=== PATIENT | male | born 2000 | race Caucasian/White ===

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

== ENCOUNTER 2021-01-10 18:47 | Emergency (ER) | payer MEDICAID, OTHER ==
[~2021-01-10] VITALS: Ht 165.1 cm; Wt 75.0 kg
[2021-01-10 18:51] VITALS: BP 115/71
[2021-01-10] MEDS ORDERED: TETANUS, DIPHTHERIA, PERTUSSIS VAC/PF 0.5ML (>7YR OLD) IM ONE (19:15)
== END 2021-01-10 20:10 | disposition home or self-care (01) ==
LOC: ER 18:47
DX: S69.82XA Other specified injuries of left wrist, hand and finger(s), initial encounter (principal); W22.8XXA Striking against or struck by other objects, initial encounter; Y93.9 Activity, unspecified; Y92.89 Other specified places as the place of occurrence of the external cause
CPT/HCPCS: 73140; 90471; 90715; 99283

== ENCOUNTER 2021-04-01 22:10 | Emergency (ER) | payer MEDICAID ==
[~2021-04-01] VITALS: Ht 170.2 cm; Wt 66.0 kg
[2021-04-01] MEDS ORDERED: CEFTRIAXONE SODIUM 500 MG/VIAL IM ONE (23:45)
[2021-04-02] MEDS ORDERED: LIDOCAINE HCL 1% 20ML VIAL (Pyxis) INJ INFIL ONE
[2021-04-02 00:37] LABS: CLARITY URINE CLEAR (CLEAR); COLOR URINE YELLOW (YELLOW); KETONES URINE TRACE (NEGATIVE); LEUKOCYTE ESTERASE URINE NEGATIVE (NEGATIVE); NITRITE URINE NEGATIVE (NEGATIVE); OCCULT BLOOD URINE NEGATIVE (NEGATIVE); PH URINE 7.5 (4.5-8.0); PROTEIN URINE NEGATIVE (NEGATIVE); SPECIFIC GRAVITY URINE 1.023 (1.005-1.030)
[2021-04-02] MEDS ORDERED: DOXY100C2 MT (00:51)
[2021-04-02 01:00] VITALS: BP 125/76
== END 2021-04-02 01:01 | disposition home or self-care (01) ==
LOC: ER 22:10
DX: A64 Unspecified sexually transmitted disease (principal); R30.0 Dysuria; F12.10 Cannabis abuse, uncomplicated
CPT/HCPCS: 81003; 96372; 99283; J0696; J3490

== ENCOUNTER 2022-07-08 23:16 | Emergency (ER) | payer MEDICAID ==
[~2022-07-08] VITALS: Ht 172.7 cm; Wt 66.3 kg
[~2022-07-08 23:16] MED LIST: DOXY100C5 MT
[2022-07-08 23:30] VITALS: BP 124/83
[2022-07-09] MEDS ORDERED: IBUPROFEN 600MG TABLET PO ONE (02:45)
[2022-07-09] MEDS ORDERED: IBUP-2029 MT (05:30)
== END 2022-07-09 06:02 | disposition home or self-care (01) ==
LOC: ER 23:16
DX: S20.212A Contusion of left front wall of thorax, initial encounter (principal); S22.32XA Fracture of one rib, left side, initial encounter for closed fracture; W01.198A Fall on same level from slipping, tripping and stumbling with subsequent striking against other object, initial encounter; Y93.89 Activity, other specified; Y92.9 Unspecified place or not applicable
CPT/HCPCS: 71101; 99283

== ENCOUNTER 2022-07-15 11:25 | Emergency (ER) | payer MEDICAID ==
[~2022-07-15] VITALS: Ht 175.3 cm; Wt 68.0 kg
[~2022-07-15 11:25] MED LIST changes: +IBUP-2029 MT
[2022-07-15 13:11] LABS: BASOPHILS % 0.6 % (0.0-2.0); EOSINOPHILS % 0.4 % (0.0-5.0); HEMATOCRIT. 44.4 % (42.0-52.0); HEMOGLOBIN. 15.6 g/dL (14.0-18.0); LYMPHOCYTES % 12.5 % (20.0-50.0); MEAN CORPUSCULAR HEMOGLOBIN 30.1 pg (28.0-32.0); MEAN PLATELET VOLUME 7.6 fl (7.4-10.4); MONOCYTES % 5.5 % (2.0-8.0); PLATELET 345 x1000/uL (130-400); RED BLOOD CELL COUNT 5.16 mill/uL (4.7-6.1); RED CELL DISTRIBUTION WIDTH 12.9 % (11.6-14.6)
[2022-07-15] MEDS ORDERED: HYDROCODONE/ACETAMINOPHEN 5/325MG TABLET PO NR (13:42)
[2022-07-15 13:50] LABS: CHLORIDE 103 mEq/L (98-107)
[2022-07-15] MEDS ORDERED: IOHEXOL-300 100 ML BOTTLE ONE (15:09)
[2022-07-15 16:20] LABS: CLARITY URINE CLEAR (CLEAR); COLOR URINE YELLOW (YELLOW); KETONES URINE TRACE (NEGATIVE); LEUKOCYTE ESTERASE URINE NEGATIVE (NEGATIVE); NITRITE URINE NEGATIVE (NEGATIVE); OCCULT BLOOD URINE NEGATIVE (NEGATIVE); PH URINE 5.5 (4.5-8.0); PROTEIN URINE TRACE (NEGATIVE); SPECIFIC GRAVITY URINE 1.023 (1.005-1.030); UROBILINOGEN URINE 0.2 E.U./dL (0.2-1.0)
[2022-07-15] MEDS ORDERED: NAPR-681 PO (16:56)
[2022-07-15] MEDS ORDERED: T3 PO (16:56)
[2022-07-15 17:17] VITALS: BP 127/86
== END 2022-07-15 17:18 | disposition home or self-care (01) ==
LOC: ER 11:49
DX: S20.212A Contusion of left front wall of thorax, initial encounter (principal); S16.1XXA Strain of muscle, fascia and tendon at neck level, initial encounter; F12.10 Cannabis abuse, uncomplicated; V49.60XA Unspecified car occupant injured in collision with unspecified motor vehicles in traffic accident, initial encounter; Y93.89 Activity, other specified; Y92.89 Other specified places as the place of occurrence of the external cause; Y99.8 Other external cause status
CPT/HCPCS: 36415; 71260; 72125; 74177; 80053; 81003; 83880; 84484; 85025; 99285; Q9967

== ENCOUNTER 2023-01-26 22:08 | Emergency (ER) | payer MEDICAID ==
[~2023-01-26] VITALS: Ht 175.3 cm; Wt 68.5 kg
[~2023-01-26 22:08] MED LIST changes: +NAPR-681 PO; +T3 PO
[2023-01-26 22:41] VITALS: BP 132/93
[2023-01-27] MEDS ORDERED: NAPR-681 MT (10:50)
== END 2023-01-27 02:35 | disposition left against medical advice (07) ==
LOC: ER 22:08
DX: Z53.21 Procedure and treatment not carried out due to patient leaving prior to being seen by health care provider (principal)
CPT/HCPCS: 99281

== ENCOUNTER 2023-01-27 09:03 | Emergency (ER) | payer MEDICAID ==
[~2023-01-27] VITALS: Ht 175.3 cm; Wt 69.0 kg
[2023-01-27 09:29] VITALS: BP 145/85
[2023-01-27] MEDS ORDERED: NAPR-681 MT (10:50)
[2023-01-27] MEDS ORDERED: IBUPROFEN 600MG TABLET PO ONE (11:00)
== END 2023-01-27 11:40 | disposition home or self-care (01) ==
LOC: ER 09:03
DX: S92.351A Displaced fracture of fifth metatarsal bone, right foot, initial encounter for closed fracture (principal); F12.10 Cannabis abuse, uncomplicated; W11.XXXA Fall on and from ladder, initial encounter; Y93.89 Activity, other specified; Y92.89 Other specified places as the place of occurrence of the external cause; Y99.8 Other external cause status
CPT/HCPCS: 29515; 73630; 99283; Z7610